=== PATIENT | female | born 1995 | race Caucasian/White ===

== ENCOUNTER 2016-07-12 15:21 | Emergency (ER) | payer OTHER ==
[~2016-07-12] VITALS: Ht 152.4 cm; Wt 77.1 kg
[~2016-07-12 15:21] MED LIST: CIPRO500 MG PO; NUVARING VAGIN1 EACH VG
[2016-07-12 16:43] LABS: HEMATOCRIT 39.5 % (36.0-46.0); MCH 27.4 PG (29.0-34.0); MCHC 31.6 G/DL (30.0-36.0); MCV 86.6 FL (83-99); MEAN PLAT.VOLUME 9.1 uM^3 (9.5-12.4); PLATELET COUNT 345 K/uL (156-360); RBC DIS.WIDTH-CV 13.2 % (11.8-14.6); RBC DIS.WIDTH-SD 41.5 % (39-53); RED BLOOD COUNT 4.56 M/uL (3.80-5.20); WHITE BLOOD COUNT 8.4 K/uL (4.1-10.2)
[2016-07-12 17:08] LABS: QUANTITATIVE HCG < 4.0 MIU/ML
[2016-07-12 17:23] LABS: CHLORIDE 104 mEq/L (99-109); POTASSIUM 3.9 mEq/L (3.7-5.4); SODIUM 139 mEq/L (136-147)
[2016-07-12 17:26] LABS: GLUCOSE 102 mg/dL (70-99)
[2016-07-12 17:27] LABS: ANION GAP 11 MEQ/L (2-14)
[2016-07-12 17:28] LABS: TOTAL BILIRUBIN 0.3 mg/dL (0.0-1.0)
[2016-07-12 17:29] LABS: ALKALINE PHOSPHATASE 72 IU/L (3-129); GFR ESTIMATE (CALCULATED) > 59 mL/min/
[2016-07-12 17:31] LABS: UREA NITROGEN (BUN) 9 mg/dL (9-23)
[2016-07-12] MEDS ORDERED: CLINDAMYCIN HC300 MG PO (19:01)
[2016-07-12 19:47] VITALS: BP 124/81
== END 2016-07-12 20:01 | disposition home or self-care (01) ==
LOC: EME 15:21 → EXP 15:21
PROVIDERS: Nurse Practitioner Family
DX: H02.845 Edema of left lower eyelid (principal); R22.0 Localized swelling, mass and lump, head
CPT/HCPCS: 70481; 80053; 84702; 84702 90; 85027; 99281; 99284

== ENCOUNTER 2017-08-27 12:44 | Emergency (ER) | payer OTHER ==
[~2017-08-27] VITALS: Ht 152.4 cm; Wt 83.0 kg
[~2017-08-27 12:44] MED LIST changes: +CLINDAMYCIN HC300 MG PO
[2017-08-27 13:43] LABS: HEMATOCRIT 35.2 % (36.0-46.0); HEMOGLOBIN 11.4 G/DL (11.9-15.5); MCH 27.8 PG (29.0-34.0); MCHC 32.4 G/DL (30.0-36.0); MCV 85.9 FL (83-99); PLATELET COUNT 397 K/uL (156-360); RBC DIS.WIDTH-SD 40.2 % (39-53); WHITE BLOOD COUNT 8.9 K/uL (4.1-10.2)
[2017-08-27 13:55] LABS: CHLORIDE 106 mEq/L (99-109); POTASSIUM 3.7 mEq/L (3.7-5.4); SODIUM 137 mEq/L (136-147)
[2017-08-27 13:57] LABS: GLUCOSE 111 mg/dL (70-99)
[2017-08-27 14:01] LABS: CREATININE 0.8 mg/dL (0.6-1.3); GFR ESTIMATE (CALCULATED) > 59 mL/min/
[2017-08-27 14:02] LABS: UREA NITROGEN (BUN) 6 mg/dL (9-23)
[2017-08-27 14:10] LABS: QUANTITATIVE HCG < 4.0 MIU/ML
[2017-08-27] MEDS ORDERED: KEFLEX500 MG PO (14:57)
[2017-08-27] MEDS ORDERED: PERCOCET 5/31 TABLET PO (14:57)
[2017-08-27] MEDS ORDERED: PREDNISONE10 M1 PO (14:57)
[2017-08-27 15:35] VITALS: BP 122/90
== END 2017-08-27 15:30 | disposition home or self-care (01) ==
LOC: EME 12:44
PROVIDERS: Physician Assistant
DX: T24.212A Burn of second degree of left thigh, initial encounter (principal); T24.211A Burn of second degree of right thigh, initial encounter; T24.192A Burn of first degree of multiple sites of left lower limb, except ankle and foot, initial encounter; T24.191A Burn of first degree of multiple sites of right lower limb, except ankle and foot, initial encounter; T31.0 Burns involving less than 10% of body surface; L55.1 Sunburn of second degree
CPT/HCPCS: 80048; 84702; 85027; 99281; 99284; J0696; J3010; J7512